=== PATIENT | male | born 1960 ===

== ENCOUNTER 2023-10-05 09:57 | Outpatient (CLI) | payer BC, OTHER ==
[2023-10-05 10:29] LABS: TOTAL HEMOGLOBIN 14.2 G/dl (14.0-17.9)
== END 2023-10-05 23:59 | disposition home or self-care (01) ==
LOC: RT 09:57
PROVIDERS: ATTEND Internal Medicine Pulmonary Disease
DX: J45.998 Other asthma (principal)
CPT/HCPCS: 85018; 94010; 94727; 94729